=== PATIENT | male | born 2000 | race Two or more races ===

== ENCOUNTER 2022-05-04 22:48 | Emergency (ER) | payer OTHER ==
[~2022-05-04] VITALS: Ht 162.6 cm; Wt 89.8 kg
[2022-05-04 22:50] VITALS: BP 133/87
[2022-05-05] MEDS ORDERED: IBUP800T26 PO (01:45)
[2022-05-05] MEDS ORDERED: AMOX875T3 PO (01:45)
== END 2022-05-05 01:56 | disposition home or self-care (01) ==
LOC: ER 22:48
DX: H66.93 Otitis media, unspecified, bilateral (principal)
CPT/HCPCS: 70450